=== PATIENT | female | born 1980 | race Two or more races ===

== ENCOUNTER → 2018-10-11 | Outpatient (CLI) | payer OTHER | END | disposition home or self-care (01) | LOC: MAMO-SONO 11:15 | DX: N64.4 Mastodynia (principal); Z80.3 Family history of malignant neoplasm of breast; R10.2 Pelvic and perineal pain; N73.8 Other specified female pelvic inflammatory diseases ==

== ENCOUNTER → 2018-10-21 13:47 | Outpatient (CLI) | payer OTHER | END | disposition home or self-care (01) | LOC: LAB 13:47 | DX: A54.89 Other gonococcal infections (principal); A53.9 Syphilis, unspecified; Z11.4 Encounter for screening for human immunodeficiency virus [HIV]; A60.00 Herpesviral infection of urogenital system, unspecified; B19.9 Unspecified viral hepatitis without hepatic coma ==